=== PATIENT | male | born 1965 | race Caucasian/White ===

== ENCOUNTER → 2018-11-11 | Outpatient (CLI) | payer BC ==
[~2018-11-11] MED LIST: ASPI81CH; ATOR20 PO; FARXIGA10 MG PO; FENO160 PO; FENO48; LISI20; LISI20 PO; METF500C PO; PIOG15; SITA100T2 PO; TOUJEO MAX300 UNIT/1 PO
[2018-11-11 13:51] LABS: Protein, Urine Quantitative 56.7 mg/dL (0.0-11.9)
[2018-11-11 14:17] LABS: Creatinine Urine 65.1 mg/dL (27.00-270.00)
== END | disposition home or self-care (01) ==
LOC: EDSTATUS 11-09 07:50 → LAB FUT 11-09 07:50 → LAB 11:24 → LAB SHORT 11:24
PROVIDERS: Internal Medicine Nephrology
DX: Z79.01 Long term (current) use of anticoagulants (principal); Z51.81 Encounter for therapeutic drug level monitoring; N18.2 Chronic kidney disease, stage 2 (mild); D63.1 Anemia in chronic kidney disease; N25.81 Secondary hyperparathyroidism of renal origin; E55.9 Vitamin D deficiency, unspecified; E78.00 Pure hypercholesterolemia, unspecified; R76.9 Abnormal immunological finding in serum, unspecified; R94.5 Abnormal results of liver function studies; R94.6 Abnormal results of thyroid function studies
CPT/HCPCS: 81050; 82043; 82570; 84156

== ENCOUNTER 2022-10-31 05:41 | Emergency (ER) | payer BC ==
[~2022-10-31] VITALS: Ht 190.5 cm; Wt 106.6 kg
[~2022-10-31 05:41] MED LIST changes: +ASPI81CH PO; +Amlodipine Bes2.5 MG PO
[2022-10-31 06:17] LABS: BASOPHILS ABSOLUTE AUTO 0.02 K/mm3 (0.00-0.23); BASOPHILS PERCENT AUTO 0 % (0-2); EOSINOPHILS ABSOLUTE AUTO 0.11 K/mm3 (0.00-0.68); EOSINOPHILS PERCENT AUTO 2 % (0-6); Hematocrit 44.3 % (37.0-53.0); Hemoglobin 15.6 g/dL (13.5-17.5); IMMATURE GRAN ABSOLUTE AUTO 0.02 K/mm3 (0.00-0.10); IMMATURE GRAN PERCENT AUTO 0 % (0-1); LYMPHOCYTES ABSOLUTE AUTO 0.71 K/mm3 (0.84-5.20); LYMPHOCYTES PERCENT AUTO 15 % (21-46); MONOCYTES ABSOLUTE AUTO 0.47 K/mm3 (0.16-1.47); MONOCYTES PERCENT AUTO 10 % (4-13); Mean Corpuscular HGB 32.6 pg (26.0-34.0); Mean Corpuscular HGB Conc 35.2 g/dL (31.5-36.5); Mean Corpuscular Volume 93 fL (80-100); Mean Platelet Volume 9.8 fL (9.1-12.4); NEUTROPHILS ABSOLUTE AUTO 3.53 K/mm3 (1.96-9.15); NEUTROPHILS PERCENT AUTO 73 % (41-73); Platelet Count 160 K/mm3 (150-400); RDW Coefficient Variation 12.4 % (11.7-14.2); RDW Standard Deviation 42.1 fL (35.1-46.3); Red Blood Cell Count 4.78 M/mm3 (4.30-5.90); White Blood Cell Count 4.86 K/mm3 (4.00-11.30)
[2022-10-31 06:41] LABS: Albumin, Blood 3.7 g/dL (3.4-5.0); Albumin/Globulin Ratio 1.1 (0.8-1.8); Bilirubin, Total 0.5 mg/dL (0.1-1.0); Bun/Creatinine Ratio 50.1 (12.0-20.0); Calcium, Blood 8.8 mg/dL (8.5-10.1); Creatinine, Blood 0.58 mg/dL (0.60-1.20); Free Thyroxine 1.15 ng/dL (0.70-1.60); Globulin, Blood 3.4 g/dL (2.2-4.0); Magnesium, Blood 1.8 mg/dL (1.6-2.4); Potassium, Blood 4.2 mmol/L (3.5-5.5); Thyroid Stimulating Hormone 2.23 uIU/mL (0.360-4.800); Total Protein, Blood 7.1 g/dL (6.4-8.2)
[2022-10-31] MEDS ORDERED: XARELTO20 MG PO (09:19)
[2022-10-31] MEDS ORDERED: METO25ER PO (09:19)
[2022-10-31 09:30] VITALS: BP 121/85
== END 2022-10-31 09:36 | disposition home or self-care (01) ==
LOC: ER 05:41
PROVIDERS: Student in an Organized Health Care Education/Training Program
DX: I48.91 Unspecified atrial fibrillation (principal); E11.9 Type 2 diabetes mellitus without complications; I10 Essential (primary) hypertension; Z79.4 Long term (current) use of insulin; Z79.82 Long term (current) use of aspirin; Z79.899 Other long term (current) drug therapy; Z96.652 Presence of left artificial knee joint
CPT/HCPCS: 36415; 71045; 80053; 83735; 83880; 84439; 84443; 85025; 93005; 93010; 96365; 96366; 96375; 96376; 99285-25; A9270; J3475; J7030

== ENCOUNTER 2024-07-23 08:12 | Day surgery (SDC) | payer BC ==
[~2024-07-23] VITALS: Ht 188 cm; Wt 95.2 kg
[~2024-07-23 08:12] MED LIST changes: +Lactated Ringer's 1,000 ML IV ONE; +METO25ER PO; +XARELTO20 MG PO; +propofoL 50 ML IV ONE
[2024-07-23] MEDS ORDERED: OZEMPIC1 MG/0.72 (08:53)
[2024-07-23] MEDS ORDERED: Lactated Ringer's 1,000 ML IV ONE (09:55)
[2024-07-23 11:17] VITALS: BP 129/88
== END 2024-07-23 11:17 | disposition home or self-care (01) ==
LOC: ORSCSDS 08:12
PROVIDERS: Internal Medicine Gastroenterology
PROC: 0DBH8ZX Excision of Cecum, Via Natural or Artificial Opening Endoscopic, Diagnostic (ICD-10-PCS; principal; 2024-07-23 09:45)
DX: Z12.11 Encounter for screening for malignant neoplasm of colon (principal); D12.0 Benign neoplasm of cecum; Z86.0101 Personal history of adenomatous and serrated colon polyps; Z79.01 Long term (current) use of anticoagulants
CPT/HCPCS: 82947; 88305; J2704; J7120